=== PATIENT | male | born 1975 | race Hispanic/Latino ===

== ENCOUNTER 2021-08-29 10:04 | Inpatient (IN) | payer OTHER, SELFPAY ==
[~2021-08-29] VITALS: Ht 172.7 cm; Wt 57.8 kg
[2021-08-29] MEDS ORDERED: ONDANSETRON 4MG TAB PO PRN (10:30)
[2021-08-29] MEDS ORDERED: HEPA500057 SQ (13:13)
[2021-08-29] MEDS ORDERED: FAMO40SU2 PO (13:13)
[2021-08-29] MEDS ORDERED: META28.32 PO (13:13)
[2021-08-29] MEDS ORDERED: NORT10CA2 PO (13:13)
[2021-08-29] MEDS ORDERED: CLON0.3T PO (13:13)
[2021-08-29] MEDS ORDERED: POTA50TAB PO (13:13)
[2021-08-29] MEDS ORDERED: QUET50TA4 PO (13:13)
[2021-08-29] MEDS ORDERED: AMLO1TAB24 PO (13:13)
[2021-08-29] MEDS ORDERED: HOME MED LIST COMPLETE! XX SCH (13:15)
[2021-08-29 14:00] VITALS: BP 126/82
[2021-08-29] MEDS: cloNIDine 0.1MG TABLET PO SCH ×2 (16:00→20:44)
[2021-08-29 20:00] VITALS: BP 118/68
[2021-08-29] MEDS: FAMOTIDINE 20 MG TAB PO SCH (20:43)
[2021-08-29] MEDS: NORTRIPTYLINE 10 MG CAP PO SCH (20:43)
[2021-08-29] MEDS: DOCUSATE SODIUM 100MG CAPSULE PO SCH (20:44)
[2021-08-29] MEDS: SENNA 8.6 MG TAB (SENOKOT) PO SCH (20:44)
[2021-08-29] MEDS: ACETAMINOPHEN TAB 650MG DOSE (2X325MG) PO PRN (21:48)
[2021-08-30] MEDS: ACETAMINOPHEN TAB 650MG DOSE (2X325MG) PO PRN ×2 (03:24→23:48)
[2021-08-30 06:00] VITALS: BP 122/77
[2021-08-30 06:39] LABS: BASO # 0.1 10^3/uL (0.0-0.2); BASO % 1.5 % (0.0-1.0); EOS # 0.2 10^3/uL (0.0-0.5); HEMOGLOBIN 10.4 g/dl (13.5-17.5); LYMPH # 1.8 10^3/uL (1.5-5.0); LYMPH % 21.3 % (24.0-44.0); MEAN CORPUSCULAR HEMOGLOBIN 28.5 pg (27.0-33.0); MEAN CORPUSCULAR HGB CONC 31.5 g/dl (32.0-36.5); MEAN CORPUSCULAR VOLUME 90.4 fl (80.0-96.0); MONO # 0.9 10^3/uL (0.0-0.8); MONO % 10.8 % (2.0-8.0); NEUTROPHILS # 5.5 10^3/uL (1.5-8.5); NEUTROPHILS % 64.1 % (36.0-66.0); PLATELET COUNT, AUTOMATED 330 10^3/uL (150-450); RED BLOOD COUNT 3.65 10^6/uL (4.30-6.10); WHITE BLOOD COUNT 8.6 10^3/uL (4.0-10.0)
[2021-08-30 07:06] LABS: ALBUMIN 3.2 GM/DL (3.2-5.2); BILIRUBIN,TOTAL 0.3 MG/DL (0.2-1.0); CALCIUM LEVEL 9.4 MG/DL (8.5-10.1); CREATININE FOR GFR 1.39 MG/DL (0.70-1.30); GLOMERULAR FILTRATION RATE 59.4 (>60); POTASSIUM SERUM 3.8 MEQ/L (3.5-5.1)
[2021-08-30] MEDS: DOCUSATE SODIUM 100MG CAPSULE PO SCH ×2 (08:04→20:31)
[2021-08-30] MEDS: amLODIPine 5 MG TAB PO SCH (08:29)
[2021-08-30] MEDS: FAMOTIDINE 20 MG TAB PO SCH ×2 (08:29→20:30)
[2021-08-30] MEDS: cloNIDine 0.1MG TABLET PO SCH ×3 (08:29→20:30)
[2021-08-30 14:00] VITALS: BP 136/87
[2021-08-30 20:00] VITALS: BP 126/85
[2021-08-30] MEDS: NORTRIPTYLINE 10 MG CAP PO SCH (20:30)
[2021-08-30] MEDS: SENNA 8.6 MG TAB (SENOKOT) PO SCH (20:31)
[2021-08-31] MEDS: ACETAMINOPHEN TAB 650MG DOSE (2X325MG) PO PRN ×2 (05:05→15:14)
[2021-08-31] MEDS: cloNIDine 0.1MG TABLET PO SCH ×3 (05:45→20:32)
[2021-08-31] MEDS: amLODIPine 5 MG TAB PO SCH (05:47)
[2021-08-31 06:00] VITALS: BP 170/100
[2021-08-31 06:38] LABS: BASO # 0.1 10^3/uL (0.0-0.2); BASO % 1.3 % (0.0-1.0); EOS # 0.3 10^3/uL (0.0-0.5); EOS % 3.9 % (0.0-3.0); HEMATOCRIT 28.3 % (42.0-52.0); HEMOGLOBIN 9.5 g/dl (13.5-17.5); LYMPH # 1.6 10^3/uL (1.5-5.0); LYMPH % 22.4 % (24.0-44.0); MEAN CORPUSCULAR HEMOGLOBIN 30.4 pg (27.0-33.0); MEAN CORPUSCULAR HGB CONC 33.6 g/dl (32.0-36.5); MEAN CORPUSCULAR VOLUME 90.7 fl (80.0-96.0); MONO # 0.8 10^3/uL (0.0-0.8); MONO % 11.2 % (2.0-8.0); NEUTROPHILS # 4.3 10^3/uL (1.5-8.5); NEUTROPHILS % 60.9 % (36.0-66.0); PLATELET COUNT, AUTOMATED 269 10^3/uL (150-450); RED BLOOD COUNT 3.12 10^6/uL (4.30-6.10)
[2021-08-31 06:53] VITALS: BP 142/98
[2021-08-31 07:02] LABS: BLOOD UREA NITROGEN 24 MG/DL (7-18); CALCIUM LEVEL 9.3 MG/DL (8.5-10.1); CARBON DIOXIDE LEVEL 31 MEQ/L (21-32); CHLORIDE LEVEL 110 MEQ/L (98-107); CREATININE FOR GFR 1.16 MG/DL (0.70-1.30); GLOMERULAR FILTRATION RATE > 60.0 (>60); GLUCOSE, FASTING 104 MG/DL (70-100); POTASSIUM SERUM 3.7 MEQ/L (3.5-5.1); SODIUM LEVEL 144 MEQ/L (136-145)
[2021-08-31] MEDS: FAMOTIDINE 20 MG TAB PO SCH ×2 (08:22→20:32)
[2021-08-31] MEDS: DOCUSATE SODIUM 100MG CAPSULE PO SCH ×2 (08:22→20:32)
[2021-08-31 14:00] VITALS: BP 150/66
[2021-08-31 15:13] VITALS: BP 147/89
[2021-08-31 19:44] VITALS: BP 142/92
[2021-08-31] MEDS: NORTRIPTYLINE 10 MG CAP PO SCH (20:32)
[2021-08-31] MEDS: SENNA 8.6 MG TAB (SENOKOT) PO SCH (20:32)
[2021-09-01] MEDS: ACETAMINOPHEN TAB 650MG DOSE (2X325MG) PO PRN ×2 (00:03→23:18)
[2021-09-01] MEDS ORDERED: NORCO, ANEXSIA 5/325MG TABLET (HYDROcodone/ACETAMINOPHEN) PO ONE (02:00)
[2021-09-01 05:54] VITALS: BP 120/82
[2021-09-01] MEDS: FAMOTIDINE 20 MG TAB PO SCH ×2 (08:48→20:18)
[2021-09-01] MEDS: amLODIPine 5 MG TAB PO SCH (08:49)
[2021-09-01] MEDS: cloNIDine 0.1MG TABLET PO SCH ×3 (08:49→20:18)
[2021-09-01] MEDS: DOCUSATE SODIUM 100MG CAPSULE PO SCH ×2 (08:49→20:18)
[2021-09-01 14:00] VITALS: BP 114/71
[2021-09-01 19:40] VITALS: BP 133/70
[2021-09-01] MEDS: SENNA 8.6 MG TAB (SENOKOT) PO SCH (20:18)
[2021-09-01] MEDS: NORTRIPTYLINE 10 MG CAP PO SCH (20:18)
[2021-09-02 06:20] VITALS: BP 124/82
[2021-09-02 06:36] LABS: BASO # 0.1 10^3/uL (0.0-0.2); BASO % 1.8 % (0.0-1.0); EOS # 0.3 10^3/uL (0.0-0.5); EOS % 5.5 % (0.0-3.0); HEMATOCRIT 30.3 % (42.0-52.0); HEMOGLOBIN 9.8 g/dl (13.5-17.5); LYMPH # 1.6 10^3/uL (1.5-5.0); LYMPH % 25.9 % (24.0-44.0); MEAN CORPUSCULAR HEMOGLOBIN 29.5 pg (27.0-33.0); MEAN CORPUSCULAR HGB CONC 32.3 g/dl (32.0-36.5); MEAN CORPUSCULAR VOLUME 91.3 fl (80.0-96.0); MONO # 0.5 10^3/uL (0.0-0.8); MONO % 7.8 % (2.0-8.0); NEUTROPHILS # 3.5 10^3/uL (1.5-8.5); NEUTROPHILS % 58.8 % (36.0-66.0); PLATELET COUNT, AUTOMATED 222 10^3/uL (150-450); RED BLOOD COUNT 3.32 10^6/uL (4.30-6.10)
[2021-09-02 07:00] LABS: BLOOD UREA NITROGEN 22 MG/DL (7-18); CALCIUM LEVEL 9.6 MG/DL (8.5-10.1); CARBON DIOXIDE LEVEL 32 MEQ/L (21-32); CHLORIDE LEVEL 110 MEQ/L (98-107); CREATININE FOR GFR 1.28 MG/DL (0.70-1.30); GLOMERULAR FILTRATION RATE > 60.0 (>60); GLUCOSE, FASTING 97 MG/DL (70-100); POTASSIUM SERUM 4.1 MEQ/L (3.5-5.1); SODIUM LEVEL 143 MEQ/L (136-145)
[2021-09-02] MEDS: FAMOTIDINE 20 MG TAB PO SCH ×2 (07:40→20:32)
[2021-09-02] MEDS: amLODIPine 5 MG TAB PO SCH (07:40)
[2021-09-02] MEDS: DOCUSATE SODIUM 100MG CAPSULE PO SCH ×2 (07:41→20:11)
[2021-09-02] MEDS: ACETAMINOPHEN TAB 650MG DOSE (2X325MG) PO PRN (07:41)
[2021-09-02] MEDS: cloNIDine 0.1MG TABLET PO SCH ×3 (07:41→20:31)
[2021-09-02 14:00] VITALS: BP 157/92
[2021-09-02] MEDS: ACETAMINOPHEN 500 MG TAB PO SCH ×2 (16:13→20:32)
[2021-09-02 20:00] VITALS: BP 134/86
[2021-09-02] MEDS: SENNA 8.6 MG TAB (SENOKOT) PO SCH (20:11)
[2021-09-02] MEDS: GABAPENTIN 100 MG CAP PO SCH (20:32)
[2021-09-02] MEDS: NORTRIPTYLINE 10 MG CAP PO SCH (20:32)
[2021-09-02] MEDS ORDERED: GABAPENTIN 100 MG CAP PO SCH (21:00)
[2021-09-03 06:00] VITALS: BP 117/82
[2021-09-03] MEDS: ACETAMINOPHEN 500 MG TAB PO SCH ×3 (06:29→20:28)
[2021-09-03] MEDS: cloNIDine 0.1MG TABLET PO SCH ×3 (08:19→20:28)
[2021-09-03] MEDS: DOCUSATE SODIUM 100MG CAPSULE PO SCH ×2 (08:19→19:33)
[2021-09-03] MEDS: amLODIPine 5 MG TAB PO SCH (08:20)
[2021-09-03] MEDS: FAMOTIDINE 20 MG TAB PO SCH ×2 (08:20→20:27)
[2021-09-03 14:00] VITALS: BP_SYST 100; BP_SYST 138; BP_DIAS 55; BP_DIAS 64
[2021-09-03] MEDS: SENNA 8.6 MG TAB (SENOKOT) PO SCH (19:33)
[2021-09-03 20:00] VITALS: BP 116/72
[2021-09-03] MEDS: NORTRIPTYLINE 10 MG CAP PO SCH (20:27)
[2021-09-03] MEDS: GABAPENTIN 100 MG CAP PO SCH (20:29)
[2021-09-04] MEDS: ACETAMINOPHEN 500 MG TAB PO SCH ×3 (05:23→22:06)
[2021-09-04 06:00] VITALS: BP 118/82
[2021-09-04] MEDS: DOCUSATE SODIUM 100MG CAPSULE PO SCH ×3 (08:16→22:07)
[2021-09-04] MEDS: cloNIDine 0.1MG TABLET PO SCH ×3 (08:31→22:08)
[2021-09-04] MEDS: FAMOTIDINE 20 MG TAB PO SCH ×2 (08:31→22:07)
[2021-09-04] MEDS: amLODIPine 5 MG TAB PO SCH (08:31)
[2021-09-04 14:00] VITALS: BP 119/70
[2021-09-04 20:00] VITALS: BP 122/72
[2021-09-04] MEDS: GABAPENTIN 100 MG CAP PO SCH (22:07)
[2021-09-04] MEDS: NORTRIPTYLINE 10 MG CAP PO SCH (22:07)
[2021-09-04] MEDS: SENNA 8.6 MG TAB (SENOKOT) PO SCH (22:07)
[2021-09-05 05:52] VITALS: BP 131/84
[2021-09-05] MEDS: ACETAMINOPHEN 500 MG TAB PO SCH ×3 (06:18→20:22)
[2021-09-05] MEDS: cloNIDine 0.1MG TABLET PO SCH ×3 (07:54→20:19)
[2021-09-05] MEDS: FAMOTIDINE 20 MG TAB PO SCH ×2 (07:54→20:19)
[2021-09-05] MEDS: DOCUSATE SODIUM 100MG CAPSULE PO SCH ×2 (07:54→20:21)
[2021-09-05] MEDS: amLODIPine 5 MG TAB PO SCH (07:55)
[2021-09-05 10:29] LABS: BASO # 0.1 10^3/uL (0.0-0.2); BASO % 1.7 % (0.0-1.0); EOS # 0.3 10^3/uL (0.0-0.5); EOS % 4.7 % (0.0-3.0); HEMATOCRIT 31.4 % (42.0-52.0); HEMOGLOBIN 9.9 g/dl (13.5-17.5); LYMPH # 1.1 10^3/uL (1.5-5.0); LYMPH % 19.5 % (24.0-44.0); MEAN CORPUSCULAR HEMOGLOBIN 28.8 pg (27.0-33.0); MEAN CORPUSCULAR HGB CONC 31.5 g/dl (32.0-36.5); MEAN CORPUSCULAR VOLUME 91.3 fl (80.0-96.0); MONO # 0.5 10^3/uL (0.0-0.8); NEUTROPHILS # 3.8 10^3/uL (1.5-8.5); NEUTROPHILS % 65.8 % (36.0-66.0); PLATELET COUNT, AUTOMATED 194 10^3/uL (150-450); RED BLOOD COUNT 3.44 10^6/uL (4.30-6.10); WHITE BLOOD COUNT 5.7 10^3/uL (4.0-10.0)
[2021-09-05 10:48] LABS: CALCIUM LEVEL 9.1 MG/DL (8.5-10.1); CREATININE FOR GFR 1.39 MG/DL (0.70-1.30); GLOMERULAR FILTRATION RATE 59.4 (>60)
[2021-09-05 14:00] VITALS: BP 109/67
[2021-09-05 19:36] VITALS: BP 125/62
[2021-09-05] MEDS: NORTRIPTYLINE 10 MG CAP PO SCH (20:19)
[2021-09-05] MEDS: GABAPENTIN 100 MG CAP PO SCH (20:21)
[2021-09-05] MEDS: SENNA 8.6 MG TAB (SENOKOT) PO SCH (20:21)
[2021-09-06 05:46] VITALS: BP 103/65
[2021-09-06] MEDS: FAMOTIDINE 20 MG TAB PO SCH (08:10)
[2021-09-06] MEDS: ACETAMINOPHEN 500 MG TAB PO SCH (08:11)
[2021-09-06 08:13] VITALS: BP 122/67
[2021-09-06] MEDS: cloNIDine 0.1MG TABLET PO SCH (08:13)
[2021-09-06] MEDS: DOCUSATE SODIUM 100MG CAPSULE PO SCH (08:14)
[2021-09-06] MEDS: amLODIPine 5 MG TAB PO SCH (08:14)
[2021-09-06 14:00] VITALS: BP 114/74
[2021-09-06] MEDS ORDERED: CLONI1TA PO (14:39)
[2021-09-06] MEDS ORDERED: GABA-1171 PO (14:39)
[2021-09-06] MEDS ORDERED: AMLO1TAB24 PO (14:39)
[2021-09-06] MEDS ORDERED: FAMO20TA PO (14:39)
[2021-09-06] MEDS ORDERED: NORT10CA2 PO (14:39)
[2021-09-06] MEDS ORDERED: cloNIDine 0.1MG TABLET PO SCH (16:00)
== END 2021-09-06 15:55 | disposition home or self-care (01) | DRG 58 ==
LOC: M PM&R 12:05
PROVIDERS: ADMIT Physical Medicine & Rehabilitation; ATTEND Physical Medicine & Rehabilitation
DX: I69.152 Hemiplegia and hemiparesis following nontraumatic intracerebral hemorrhage affecting left dominant side (principal); R53.1 Weakness; F95.2 Tourette's disorder; I12.9 Hypertensive chronic kidney disease with stage 1 through stage 4 chronic kidney disease, or unspecified chronic kidney disease; F84.5 Asperger's syndrome; H54.3 Unqualified visual loss, both eyes; Z74.09 Other reduced mobility; Z74.1 Need for assistance with personal care; G80.9 Cerebral palsy, unspecified; E87.1 Hypo-osmolality and hyponatremia; I69.198 Other sequelae of nontraumatic intracerebral hemorrhage; H53.8 Other visual disturbances; F17.210 Nicotine dependence, cigarettes, uncomplicated; N18.2 Chronic kidney disease, stage 2 (mild); H43.13 Vitreous hemorrhage, bilateral; Z79.899 Other long term (current) drug therapy; Z98.2 Presence of cerebrospinal fluid drainage device